=== PATIENT | female | born 1945 | race Caucasian/White ===

== ENCOUNTER → 2019-07-28 | Outpatient (CLI) | payer MEDICARE | END | disposition home or self-care (01) | LOC: LABWHC1 11:40 | PROVIDERS: ATTEND Orthopaedic Surgery | DX: M25.512 Pain in left shoulder (principal); S42.222A 2-part displaced fracture of surgical neck of left humerus, initial encounter for closed fracture; E55.9 Vitamin D deficiency, unspecified | CPT/HCPCS: 36415; 82306 ==

== ENCOUNTER 2020-07-15 06:25 | Inpatient (IN) | payer MEDICARE ==
[2020-07-15] MEDS ORDERED: ORPHENADRINE 30 MG/ML 2 ML VIAL IM STA (06:48)
[2020-07-15] MEDS ORDERED: MORPHINE SULFATE 4 MG/ML SYRINGE IM STA (06:48)
[2020-07-15] MEDS ORDERED: KETOROLAC 15 MG/ML 1 ML VIAL IM STA (06:48)
--- NOTE | 2020-07-15 06:53 | ED ---
Back Pain HPI - General Chief Complaint: Back Pain/Injury Stated Complaint: Back Pain Time Seen by Provider: 07/15/20 06:37 Source: patient, EMS, RN notes reviewed, old records reviewed Limitations: no limitations - History of Present Illness Initial Comments: Panel a 75-year-old female who presents emergency department today for evaluation for months of back pain on the right lower back with some radiation down the right leg. Patient states that her symptoms seem to start in the summer time. She's been taking Motrin for pain relief as Tylenol with Codeine did not work for her in the past. Patient states that she her pain become severe today when she awoke and her called 911 for transport to ER. She denies any saddle anesthesias. She denies any known fall or trauma. She did have an x-ray completed a month ago at [facility] and reports that the hair suspected some problems with her disks. Patient states that she has had no dysuria or hematuria or change in bowel habits. Denies abdominal pain. She does report that her pain is positional and exacerbated with straightening her leg. - Related Data Home Medications Medication Instructions Recorded Confirmed Cholecalciferol [Vitamin D3 (25 1,000 unit PO DAILY 07/15/20 07/15/20 Mcg = 1000 Iu)] Docusate [Colace] 100 mg PO DAILY 07/15/20 07/15/20 Ibuprofen [Motrin Ib] 800 mg PO Q6H PRN 07/15/20 07/15/20 Allergies Allergy/AdvReac Type Severity Reaction Status Date / Time ragweed pollen Allergy Cough Verified 07/15/20 08:10 acetaminophen [From Tylenol] AdvReac Unknown Verified 07/15/20 08:12 Sulfa (Sulfonamide AdvReac Unknown Verified 07/15/20 08:12 Antibiotics) Review of Systems ROS Statement: Those systems with pertinent positive or pertinent negative responses have been documented in the HPI. ROS Other: All systems not noted in ROS Statement are negative. Past Medical History Past Medical History: No Reported History History of Any Multi-Drug Resistant Organisms: None Reported Past Surgical History: Appendectomy, Cholecystectomy, Tonsillectomy Past Psychological History: No Psychological Hx Reported Smoking Status: Never smoker Past Alcohol Use History: Occasional Past Drug Use History: None Reported General Exam - General Exam Comments Initial Comments: 75-year-old female. Patient is resting in bed. Moderate discomfort. Limitations: no limitations General appearance: alert, in no apparent distress Head exam: Present: atraumatic, normocephalic, normal inspection Eye exam: Present: normal appearance, PERRL, EOMI. Absent: scleral icterus, conjunctival injection, periorbital swelling ENT exam: Present: normal exam, mucous membranes moist Neck exam: Present: normal inspection. Absent: tenderness, meningismus, lymphadenopathy Respiratory exam: Present: normal lung sounds bilaterally. Absent: respiratory distress, wheezes, rales, rhonchi, stridor Cardiovascular Exam: Present: regular rate GI/Abdominal exam: Present: soft, normal bowel sounds. Absent: distended, tenderness, guarding, rebound, rigid Extremities exam: Present: normal inspection, full ROM, normal capillary refill. Absent: tenderness, pedal edema, joint swelling, calf tenderness Back exam: Present: normal inspection, tenderness (Patient is tender on palpation to the right lower lumbar spine paraspinal muscles and right sciatic notch.) Neurological exam: Present: alert, oriented X3, CN II-XII intact Course Vital Signs 07/15/20 07/15/20 06:28 07:36 Temperature 98.2 F Pulse Rate 80 82 Respiratory 18 18 Rate Blood Pressure 174/92 156/77 O2 Sat by Pulse 96 97 Oximetry Medical Decision Making - Medical Decision Making 75-year-old female presents emergency department today for evaluation with complaints of right hip and back pain. She reports she's been having intermittent pain with physician for months. At this time patient's had a computed tomography scan which shows concern for multiple lytic lesions on lumbar spine into the right iliac crest concern for metastatic disease. She has no known history of cancer. I did inform Patient of these results and she states she's had having a difficult time following with her primary care doctor as of late. Discussed we can do further testing and treatment here and to give her IV pain medication to manage her back pain. I discussed the case Dr. ROD and discussed case with Dr. Richter. He requested consults to orthopedics for back pain with concern for metastatic disease as well as oncology. [facility] chest x-ray does show concern for infiltrate pneumonia. She'll be tested for Covid upright also started on IV Rocephin. Blood cultures obtained. - Lab Data Result diagrams: 07/15/20 09:19 07/15/20 09:19 Lab Results 07/15/20 07/15/20 07/15/20 Range/Units 07:50 09:19 09:19 WBC 6.4 (3.8-10.6) k/uL RBC 4.88 (3.80-5.40) m/uL Hgb 13.1 (11.4-16.0) gm/dL Hct 40.1 (34.0-46.0) % MCV 82.0 (80.0-100.0) fL MCH 26.7 (25.0-35.0) pg MCHC 32.6 (31.0-37.0) g/dL RDW 14.5 (11.5-15.5) % Plt Count 334 (150-450) k/uL MPV 7.4 Neutrophils % 75 % Lymphocytes % 16 % Monocytes % 6 % Eosinophils % 2 % Basophils % 1 % Neutrophils # 4.8 (1.3-7.7) k/uL Lymphocytes # 1.0 (1.0-4.8) k/uL Monocytes # 0.4 (0-1.0) k/uL Eosinophils # 0.1 (0-0.7) k/uL Basophils # 0.0 (0-0.2) k/uL Sodium 140 (137-145) mmol/L Potassium 3.6 (3.5-5.1) mmol/L Chloride 104 (98-107) mmol/L Carbon Dioxide 29 (22-30) mmol/L Anion Gap 7 mmol/L BUN 23 H (7-17) mg/dL Creatinine 0.95 (0.52-1.04) mg/dL Est GFR (CKD-EPI)AfAm 69 (>60 ml/min/1.73 sqM) Est GFR (CKD-EPI)NonAf 60 (>60 ml/min/1.73 sqM) Glucose 90 (74-99) mg/dL Calcium 10.1 (8.4-10.2) mg/dL Total Bilirubin 0.8 (0.2-1.3) mg/dL AST 45 H (14-36) U/L ALT 21 (4-34) U/L Alkaline Phosphatase 160 H (38-126) U/L Total Protein 6.8 (6.3-8.2) g/dL Albumin 3.4 L (3.5-5.0) g/dL Urine Color Yellow Urine Appearance Clear (Clear) Urine pH 5.5 (5.0-8.0) Ur Specific [place] 1.016 (1.001-1.035) Urine Protein Trace H (Negative) Urine Glucose (UA) Negative (Negative) Urine Ketones Negative (Negative) Urine Blood Negative (Negative) Urine Nitrite Negative (Negative) Urine Bilirubin Negative (Negative) Urine Urobilinogen <2.0 (<2.0) mg/dL Ur Leukocyte Esterase Negative (Negative) 07/15/20 10:18 EKG performed at 950 shows normal sinus rhythm. [place] deviation. Rib on a branch block. Multiple dispatcher for LVH may be normal variant. Ventricular rate of 80 bpm. Was 192 ms. She congregation is 140 ms. QT QTc is 446/514 ms. - Radiology Data Radiology results: report reviewed Impression of CT lumbar spine shows findings are felt to reflect metastatic disease. Multilevel degenerative disc disease with multilevel central stenosis. There is normal disc space height at L1-L2 no discrete herniation or central s tenosis. L2-L3 she's moderate distress during a posterior disc bulge. Sclerotic areas involving L2 and lytic lesions at L3. L3-L4 shows severe disc desiccation asking this note a posterior disc bulge with A Spur. Medically Degenerative Vertebral Bodies Spinous Processes of L3-L4. L4-L5 Shows Vacuum Disks Are Noted. Central Stenosis. Bilateral Lateral Recess Stenosis. L5-S1 Shows Moderate Distal Sensation. Posterior Disc Bulge. Bilateral Renal Stenosis. His Lytic Mass Noted in the Right Ileum Extending to the Bilateral Sacrum near the Right Greater Than Left. Basilar Atelectasis and Infiltrates Right Greater Than Left with Small Effusions. Pleural Based Nodule in the Left Lower Lobe. Patchy perihilar and upper lobe infiltrate suggestive of pneumonia. Correlate clinically is studies advice. Disposition Clinical Impression: Back pain, Lytic bone lesion of hip, Pleural effusion, Pneumonia Disposition: ADMITTED IP TO THIS HOSP Condition: Good Is patient prescribed a controlled substance at d/c from ED?: No Referrals: Gavi Calvillo MD [Primary Care Provider] - 1-2 days Time of Disposition: 09:40
--- NOTE | 2020-07-15 07:50 | CT ---
EXAMINATION TYPE: CT lumbar spine wo con DATE OF EXAM: 07/15/2020 COMPARISON: None HISTORY: low back pain CT DLP: 1338.[address] of the lumbar spine was performed. Bone and soft tissue window settings are submitted as well as coronal and sagittal reconstructions. L1-L2: Normal disc space height. No disc herniation protrusion or central stenosis. No facet joint arthropathy. No evidence for foraminal encroachment. L2-L3: Moderate disc space narrowing. Posterior disc bulge. Effacement ventral thecal sac without dis c herniation. There is mild central stenosis suggested. Lytic lesions at L3. Sclerotic areas involvin g L2. L3-L4: Severe disc desiccation vacuum disks noted. Posterior disc bulge with partial encapsulating sp ur. Moderate central stenosis identified. Lytic lesions are noted of the vertebral bodies and spinous processes of L3 and L4. L4-L5: Vacuum disc noted. Moderate posterior disc bulge. Severe central stenosis. Bilateral lateral r ecess stenosis. Mixed lytic and sclerotic lesions of L4 on L5. L5-S1: Moderate disc desiccation. Posterior disc bulge. Mild effacement ventral thecal sac. Bilateral lateral recess stenosis. Lytic mass is noted in the right ilium extending into the bilateral sacrum right greater than left. B asilar atelectasis and infiltrates right greater than left. Small effusions. Pleural-based nodule lef t lower lobe. IMPRESSION: 1. Findings felt to reflect metastatic disease. 2. Multilevel degenerative disc disease with multilevel central stenosis as outlined above.
[2020-07-15 08:00] LABS: Appearance,Urine Clear (Clear); Bilirubin,Urine Negative (Negative); Blood,Urine Negative (Negative); Color,Urine Yellow; Glucose,Urine (UA) Negative (Negative); Ketones,Urine Negative (Negative); Leukocyte Esterase,Urine Negative (Negative); Nitrite,Urine Negative (Negative); PH, Urine 5.5 (5.0-8.0); Protein,Urine Trace (Negative); Specific Gravity,Urine 1.016 (1.001-1.035); Urobilinogen,Urine <2.0 mg/dL (<2.0)
[2020-07-15] MEDS: SODIUM CHLORIDE 0.9% 1,000 ML IV SCH ×2 (09:38→19:20)
[2020-07-15 10:04] LABS: Albumin 3.4 g/dL (3.5-5.0); Calcium 10.1 mg/dL (8.4-10.2); Potassium 3.6 mmol/L (3.5-5.1); Total Bilirubin 0.8 mg/dL (0.2-1.3); Total Protein 6.8 g/dL (6.3-8.2)
[2020-07-15 10:07] LABS: Basophils % (A) 1 %; Eosinophils # (A) 0.1 k/uL (0-0.7); Eosinophils % (A) 2 %; HCT 40.1 % (34.0-46.0); HGB 13.1 gm/dL (11.4-16.0); Lymphocytes % (A) 16 %; MCH 26.7 pg (25.0-35.0); MCHC 32.6 g/dL (31.0-37.0); Mean Platelet Volume 7.4; Monocytes # (A) 0.4 k/uL (0-1.0); Monocytes % (A) 6 %; Neutrophils # (A) 4.8 k/uL (1.3-7.7); Neutrophils % (A) 75 %; Platelet Count 334 k/uL (150-450); RBC 4.88 m/uL (3.80-5.40); RDW 14.5 % (11.5-15.5); WBC 6.4 k/uL (3.8-10.6)
--- NOTE | 2020-07-15 10:12 | XR ---
EXAMINATION TYPE: XR chest 1V DATE OF EXAM: 07/15/2020 HISTORY: Shortness of breath. COMPARISON: None. TECHNIQUE: Single view of the chest is submitted. FINDINGS: Demonstrated are scattered senescent parenchymal change. Patchy perihilar and upper lobe infiltrate suggestive of pneumonia. Correlate clinically and progress studies are advised. Mottled appearance of the right humeral head and glenoid. Consider additional imaging of the right sh oulder. The heart is stable. Hilar and mediastinal structures are within normal limits. Degenerative changes are seen of the dorsal spine. IMPRESSION: 1. Patchy perihilar and upper lobe infiltrate suggestive of pneumonia. Correlate clinically and prog ress studies are advised.
[2020-07-15] MEDS ORDERED: cefTRIAXone IN SWFI 1,000 MG/10 ML SYRINGE IVP STA (10:22)
[2020-07-15] MEDS ORDERED: ONDANSETRON 4 MG/2 ML VIAL IVP PRN (10:24)
[2020-07-15] MEDS ORDERED: ACETAMINOPHEN TAB 325 MG TAB PO PRN (10:24)
[2020-07-15] MEDS ORDERED: KETOROLAC 15 MG/ML 1 ML VIAL IVP PRN (10:24)
[2020-07-15] MEDS ORDERED: NALOXONE 0.4 MG/ML 1 ML VIAL IV PRN (10:24)
[2020-07-15] MEDS ORDERED: IBUPROFEN 400 MG TAB PO PRN (10:24)
[2020-07-15] MEDS ORDERED: TEMAZEPAM 15 MG CAP PO PRN (10:24)
[2020-07-15 10:31] LABS: Partial Thromboplastin Time 22.6 sec (22.0-30.0)
[2020-07-15] MEDS ORDERED: IOPAMIDOL CONTRAST (ORAL USE) VIAL PO PRN (11:35)
[2020-07-15] MEDS: MORPHINE SULFATE 4 MG/ML SYRINGE IV PRN (12:52)
--- NOTE | 2020-07-15 15:15 | NM ---
EXAMINATION TYPE: NM bone scan whole body DATE OF EXAM: 07/15/2020 COMPARISON: Correlation CT lumbar spine 07/15/2020 HISTORY: 75-year-old female breast mass and bone lesions TECHNIQUE: Delayed whole-body scanning was performed following the injection of 23.2 mCi Tc 99m MDP. Whole-body images acquired 3 hours post injection. FINDINGS: Numerous abnormal foci of increased activity are present throughout the axial and appendicular skelet on. Foci involve the calvarium, spine, sacrum, subtrochanteric region of the proximal left femur, mid left femur, small focus within the right femoral neck and distal right femur, bilateral ribs, and bi lateral shoulders. Small focus within the proximal left humeral shaft. IMPRESSION: Diffuse osseous metastatic disease with involvement of both the axial and appendicular skeleton. Atte ntion to the proximal left femur on patient's CT which we note to be scheduled at this time. A signif icant lytic lesion which can predispose the patient to a pathologic fracture should be excluded.
--- NOTE | 2020-07-15 16:50 | P.CONS ---
History of Present Illness - Reason for Consult Consult date: 07/15/20 bone lesions Requesting physician: Blanca North - Chief Complaint back pain - History of Present Illness Mrs. Mckeon is a very pleasant 75-year-old female we've been asked to see in regards to concerning findings on CT of the low back and pelvis when she presented for persistent low back pain. There is lytic mass in the right ilium extending into the bilateral sacrum, right greater than left, suspicious for metastatic disease, there is a pleural-based nodule in the left lower lobe. Patient states that she has had back pain since the summer. It is persistent and now progressive. Associated with some weakness in the legs, R>L, one instance of incontinence of urine in recent months. Patient denies any personal history of cancer. She is a never smoker, she states that she does have a right breast mass that is been there for about 2 years. He thinks she has lost about 25lbs, pt denied sweats, fevers, pain in the breast, cough, MALISSA, chest pain, swelling, bleeding. Her has had to help her walk the last week, states she leans to the left, pt denied MORALES, vision changes, numbness or tingling in the extremities. 14 point ROS is otherwise negative. She had a sister with breast cancer in her 50s (surg, chemo), brother with colon cancer in his 20's. Pt is never smoker. Review of Systems 14 point ROS is negative except as stated in HPI Past Medical History Past Medical History: No Reported History History of Any Multi-Drug Resistant Organisms: None Reported Past Surgical History: Appendectomy, Cholecystectomy, Tonsillectomy Past Psychological History: No Psychological Hx Reported Smoking Status: Never smoker Past Alcohol Use History: Occasional Past Drug Use History: None Reported Medications and Allergies Home Medications Medication Instructions Recorded Confirmed Type Cholecalciferol [Vitamin D3 (25 1,000 unit PO DAILY 07/15/20 07/15/20 History Mcg = 1000 Iu)] Docusate [Colace] 100 mg PO DAILY 07/15/20 07/15/20 History Ibuprofen [Motrin Ib] 800 mg PO Q6H PRN 07/15/20 07/15/20 History Allergies Allergy/AdvReac Type Severity Reaction Status Date / Time ragweed pollen Allergy Cough Verified 07/15/20 08:10 acetaminophen [From Tylenol] AdvReac Unknown Verified 07/15/20 08:12 Sulfa (Sulfonamide AdvReac Unknown Verified 07/15/20 08:12 Antibiotics) Physical Exam Vitals: Vital Signs Temp Pulse Resp BP Pulse Ox 07/15/20 11:00 75 18 141/78 98 07/15/20 10:00 76 18 148/75 100 07/15/20 07:36 82 18 156/77 97 07/15/20 06:28 98.2 F 80 18 174/92 96 Intake and Output 07/14/20 07/15/20 07/15/20 22:59 06:59 14:59 Other: Weight 88.451 kg - Constitutional General appearance: cooperative, disheveled, no acute distress, obese - EENT very dry mucus membranes Eyes: anicteric sclerae, EOMI ENT: hearing grossly normal - Neck Neck: lymphadenopathy (rt axilla, 5cm mass) - Respiratory Respiratory: bilateral: CTA, diminished - Cardiovascular Rhythm: regular Heart sounds: normal: S1, S2 Abnormal Heart Sounds: no systolic murmur, no diastolic murmur, no rub, no S3 Gallop, no S4 Gallop, no click, no other leg Peripheral Edema: bilateral: None - Gastrointestinal General gastrointestinal: no absent bowel sounds, no decreased bowel sounds, no distended, no hepatomegaly, no hyperactive bowel sounds, normal bowel sounds, no organomegaly, no rigid, no scaphoid, soft, no splenomegaly, no tenderness, no umbilical hernia, no ventral hernia - Integumentary Integumentary: normal - Neurologic slightly lethargic Neurologic: CNII-XII intact - Musculoskeletal Musculoskeletal: generalized weakness Bilateral breast exam: left breast tissue feels dense, possibly fibrotic. Right breast has irregular mass, approx 10cm, 9-12oclock position, skin nodularity noted, not fixed to chest wall, nipple changes Results CBC & Chem 7: 07/15/20 09:19 07/15/20 09:19 Labs: Abnormal Lab Results - Last 24 Hours (Table) 07/15/20 07/15/20 Range/Units 07:50 09:19 BUN 23 H (7-17) mg/dL AST 45 H (14-36) U/L Alkaline Phosphatase 160 H (38-126) U/L Albumin 3.4 L (3.5-5.0) g/dL Urine Protein Trace H (Negative) Assessment and Plan (1) Breast mass, right Current Visit: Yes Status: Acute Priority: High Code(s): N63.10 - UNSPECIFIED LUMP IN THE RIGHT BREAST, UNSPECIFIED QUADRANT SNOMED Code(s): 89951311 (2) Lytic bone lesion of hip Current Visit: Yes Status: Acute Priority: High Code(s): M89.8X5 - OTHER SPECIFIED DISORDERS OF BONE, THIGH SNOMED Code(s): 71746709 Plan: Right axillary adenopathy and right breast mass. Patient states this has been present probably for 2 years or more. She has not had workup of the same. Back pain has been since the summer. Workup so far is showing suspicious lytic lesions in pelvic bones. Situation is very concerning for malignancy. Have requested CT CAP, NM bone scan and biopsy of the right breast mass. Have requested additional tissue for next generation sequencing. Have also requested MRI of the brain as the patient's states that she has been "leaning to the left". Tumor markers ordered. F/U in AM. Eval pain control and titrate for pt comfort.
--- NOTE | 2020-07-15 17:05 | CT ---
EXAMINATION TYPE: CT ChestAbdPelvis w con DATE OF EXAM: 07/15/2020 COMPARISON: Correlation bone scan 07/15/2020 HISTORY: 75-year-old female breast mass and bone lesions TECHNIQUE: Contiguous axial scanning of the chest, abdomen, and pelvis performed with IV Contrast, pa tient injected with 100 mL of Isovue 300. Delayed images through the kidneys were obtained. Coronal/s agittal reconstructions performed. CT DLP: 2063.4 mGycm Automated exposure control for dose reduction was used. FINDINGS: CHEST: Heart normal size without pericardial effusion. Mild LAD and RCA coronary artery calcifications. Aorta normal caliber with conventional arch vessel branching anatomy. Large upper outer quadrant right breast mass measuring 5.6 x 4.4 cm. Adjacent 2.7 cm x 1.7 cm satelli te mass at approximately 9:00 position within the right breast. Right axillary lymphadenopathy measuring 4.7 x 3.4 cm. Right subpectoral adenopathy higher up measuring 2.2 x 1.2 cm. Right internal mammary chain lymph node measuring 1.1 cm. Mediastinal lymphadenopathy paratracheal and AP window measuring up to 2.8 cm. Bilateral hilar lymphadenopathy measuring up to 2.9 cm on the right and 2.7 x 1.6 cm on the left. Subcarinal 2.9 cm lymphadenopathy. Small right and trace left pleural effusions. Bilateral pulmonary nodules measuring up to 2.0 cm on the right and 9 mm on the left. Subpleural nodu larity anterior right lower lung also suspicious for metastatic disease. ABDOMEN: No obvious hepatic metastases identified at this time allowing for artifact from the patient's arms d own by her side. Cholecystectomy clips. Rounded fat density 8 mm lesion left adrenal gland possible small myelolipoma. Kidneys, spleen, and pancreas show no gross abnormal quality. No dilated small bowel, free fluid, or free air. No mesenteric or retroperitoneal lymphadenopathy. Mild stool burden. Scattered colonic diverticulosis. Prominent stool distending the rectum up to 7.0 cm AP. PELVIS: Stallworth catheter is in place collapsing the bladder. Uterus anteverted. Endometrial stripe estimated at 5 mm. Small bilateral ovaries. No abnormal fluid collection in the pelvis or pelvic lymphadenopathy. BONES: There is a prominent intramedullary lesion within the subtrochanteric region of the proximal left fem ur. No significant cortical thinning in this region. There is cortical loss involving the left lesser trochanter predisposing it to a pathologic fracture Diffuse mixed sclerotic and lytic lesions throughout including the pelvis and sacrum, spine, bilatera l ribs, sternum, scapula, proximal humeri. There is a lytic lesion at the base of the right coracoid process placing at risk for pathologic frac ture. Mild overall height loss of the T10 vertebral body. Loss of much of the posterior vertebral body bita ex at T3, T4, T5 vertebral bodies. IMPRESSION: 1. 5.6 CM RIGHT UPPER OUTER QUADRANT BREAST MASS EXTENDING TO THE SKIN SURFACE. ADJACENT 2.7 CM SATEL LITE MASS AT THE 9:00 POSITION. 2. RIGHT AXILLARY LYMPHADENOPATHY MEASURING 4.7 CM. SUBPECTORAL ADENOPATHY ON THE RIGHT MEASURING 2.2 CM. 3. ADDITIONAL METASTATIC DISEASE CHARACTERIZED BY: MEDIASTINAL, HILAR, RIGHT INTERNAL MAMMARY CHAIN L YMPHADENOPATHY, BILATERAL PULMONARY NODULES, AND DIFFUSE OSSEOUS METASTATIC DISEASE. 4. THERE IS SOFT TISSUE DESTRUCTION INVOLVING MOST OF THE POSTERIOR VERTEBRAL BODY CORTEX OF T3, T4, T5. MILD OVERALL HEIGHT LOSS OF T10. LARGE INTRAMEDULLARY LESION WITHIN THE SUBTROCHANTERIC REGION OF THE PROXIMAL LEFT FEMORAL SHAFT BUT WITHOUT SIGNIFICANT CORTICAL LOSS HERE AT THIS TIME. HOWEVER, LY TIC LESIONS INVOLVING THE LEFT LESSER TROCHANTER AND BASE OF THE RIGHT CORACOID PROCESS PLACE THESE A REAS AT RISK FOR PATHOLOGIC FRACTURE. 5. SMALL EFFUSIONS, RIGHT GREATER THAN LEFT.
[2020-07-16] MEDS: MORPHINE SULFATE 4 MG/ML SYRINGE IV PRN ×3 (02:16→22:16)
[2020-07-16] MEDS: SODIUM CHLORIDE 0.9% 1,000 ML IV SCH ×2 (05:20→17:27)
[2020-07-16] MEDS ORDERED: PANTOPRAZOLE 40 MG/10 ML VIAL IV SCH (09:00)
--- NOTE | 2020-07-16 09:30 | USB ---
Reason for exam: clinical finding. US Breast Limited RT Right limited breast ultrasound including focal area of concern, retroareolar and axilla demonstrates a 5.3 x 3.4 x 6.1cm irregular, solid, hypoechoic, vascular lesion at 10 o'clock BB, a 3.1cm lobular, abnormal lymph node at the axilla and a 0.9cm oval, abnormal lymph node at the axilla. ASSESSMENT: Highly suggestive of malignancy, BI-RAD 5 RECOMMENDATION: Ultrasound core biopsy of the right breast.
[2020-07-16] MEDS ORDERED: diazePAM 5 MG TAB PO STA (10:21)
--- NOTE | 2020-07-16 12:26 | USB ---
ULTRASOUND GUIDED CORE BIOPSY RIGHT BREAST MASS: CLINICAL HISTORY: Right breast mass FINDINGS: The procedure was explained to the patient. The risks, complications, benefits and alternatives were discussed and any questions were answered. Informed consent was obtained. Patient was placed supine on the ultrasound table and prepped and draped in the usual sterile fashion. Utilizing a 14 gauge needle, two passes were made into the requested right breast mass. Surgical clip placed post procedure. Patient was stable throughout the procedure. Pathology is pending. All elements of maximal barrier technique were utilized. IMPRESSION: 1. Successful ultrasound guided biopsy right breast mass. Pathology Results: Malignant RIGHT BREAST, CORE BIOPSY: Invasive moderately differentiated ductal carcinoma (Grade 2). See Surgical Pathology Cancer Case Summary and Comment. Recommendation Surgical consult of the right breast. RONY
--- NOTE | 2020-07-16 12:45 | P.CONS ---
History of Present Illness - Reason for Consult Consult date: 07/16/20 metastatic bone disease Requesting physician: Valdemar Johnson - Chief Complaint Lower back pain - History of Present Illness 75 years old female with history of lower back pain in the past 6 months, in the last week her back pain became severe and untolerable, she came to the emergency room, CT of the lumbar spine showed lytic lesions in the right ilium , bilateral sacrum and the lumbar spine. The patient has no history of cancer. Her bone scan revealed diffuse osseous disease in both axial and appendicular skeleton , with attention to the proximal left femur , there is a significant lytic lesion in the left femur which might be impending fracture . The patient has a palpable mass in the right breast which has been there for years, she never had biopsy. Ultrasound of the right breast revealed a 5.3 x 3.4 x 6.1 cm irregular solid hypoechoic at 10 o'clock position with abnormal lymph nodes in the right axilla. Biopsy is scheduled to be done today. At this time Mrs. Mckeon complaints of pain in the lower back, the pain is constant even at rest, it is 9/10 in pain scale , and drops to 4 /10 by using pain medication. she complains of pain in the right shoulder as well. Review of Systems Constitutional: Reports as per HPI Breasts: right: masses (Has been noticed for 2 years ) Breasts: Reports as per HPI Cardiovascular: Reports as per HPI Respiratory: Reports as per HPI Gastrointestinal: Reports as per HPI Genitourinary: Reports as per HPI Musculoskeletal: Reports limitation of motion, Reports low back pain, Reports mo rning stiffness, Reports muscle weakness Integumentary: Reports as per HPI Neurological: Reports as per HPI Endocrine: Reports as per HPI Hematologic/Lymphatic: Reports as per HPI Allergic/Immunologic: Reports as per HPI Past Medical History Past Medical History: No Reported History, Osteoarthritis (OA) Additional Past Medical History / Comment(s): Low R sided back pain into R hip past few months, occasional constipation. History of Any Multi-Drug Resistant Organisms: None Reported Past Surgical History: Appendectomy, Cholecystectomy, Tonsillectomy Past Anesthesia/Blood Transfusion Reactions: No Reported Reaction Past Psychological History: No Psychological Hx Reported Smoking Status: Never smoker Past Alcohol Use History: Occasional Past Drug Use History: None Reported - Past Family History Father Family Medical History: Hypertension Mother Family Medical History: Diabetes Mellitus Medications and Allergies Home Medications Medication Instructions Recorded Confirmed Type Cholecalciferol [Vitamin D3 (25 1,000 unit PO DAILY 07/15/20 07/15/20 History Mcg = 1000 Iu)] Docusate [Colace] 100 mg PO DAILY 07/15/20 07/15/20 History Ibuprofen [Motrin Ib] 800 mg PO Q6H PRN 07/15/20 07/15/20 History Allergies Allergy/AdvReac Type Severity Reaction Status Date / Time ragweed pollen Allergy Cough Verified 07/15/20 08:10 acetaminophen [From Tylenol] AdvReac Unknown Verified 07/15/20 08:12 Sulfa (Sulfonamide AdvReac Unknown Verified 07/15/20 08:12 Antibiotics) Physical Exam Vitals: Vital Signs Temp Pulse Pulse Resp BP BP BP 07/16/20 11:30 85 16 149/81 07/16/20 11:15 86 16 147/76 07/16/20 11:05 87 18 141/79 07/16/20 04:50 98.3 F 88 18 146/79 07/15/20 23:25 18 07/15/20 22:25 98.5 F 90 16 136/78 07/15/20 20:05 18 07/15/20 15:56 97.6 F 78 18 148/84 07/15/20 15:30 98.9 F 80 20 146/73 07/15/20 12:54 85 20 155/73 07/15/20 12:30 82 155/73 Pulse Ox 07/16/20 11:30 98 07/16/20 11:15 97 07/16/20 11:05 98 07/16/20 04:50 96 07/15/20 23:25 96 07/15/20 22:25 91 L 07/15/20 20:05 07/15/20 15:56 97 07/15/20 15:30 98 07/15/20 12:54 98 07/15/20 12:30 Intake and Output 07/15/20 07/16/20 07/16/20 22:59 06:59 14:59 Intake Total 400 1400 Output Total 400 400 Balance 0 1000 Intake: Intake, IV Titration 400 1200 Amount Sodium Chloride 0.9% 1, 400 1200 000 ml @ 100 mls/hr IV . Q10H [facility] Rx#:[id number] Oral 200 Output: Urine 400 400 Uretheral (Stallworth) 400 Other: Voiding Method Indwelling Catheter Indwelling Catheter Weight 88.451 kg - Constitutional General appearance: mild distress, no acute distress, obese - EENT Eyes: EOMI - Neck Neck: no lymphadenopathy - Respiratory Respiratory: bilateral: rales - Cardiovascular Rhythm: regular - Gastrointestinal General gastrointestinal: no organomegaly, soft, no tenderness - Integumentary Integumentary: normal - Neurologic Neurologic: CNII-XII intact - Musculoskeletal Musculoskeletal: generalized weakness - Psychiatric Psychiatric: A&O x's 3, appropriate affect, intact judgment & insight Results CBC & Chem 7: 07/15/20 09:19 07/15/20 09:19 Labs: Abnormal Lab Results - Last 24 Hours (Table) 07/16/20 Range/Units 06:37 CA 27-29 70.2 H (0.0-38.5) U/mL Assessment and Plan Assessment: -Probably stage IV breast cancer with metastatic disease to the bone. -Pain in the lower back related to diffuse osseous metastasis disease of the lumbar spine, pelvic bone, and left femur. -Possible impending fracture in the left femur due to a lytic lesion . (1) Back pain Current Visit: Yes Status: Acute Code(s): M54.9 - DORSALGIA, UNSPECIFIED SNOMED Code(s): 455477207 (2) Breast mass, right Current Visit: Yes Status: Acute Priority: High Code(s): N63.10 - UNSPECIFIED LUMP IN THE RIGHT BREAST, UNSPECIFIED QUADRANT SNOMED Code(s): 93226879 Plan: Bone scan and CAT scan were reviewed, the patient is scheduled today to have a biopsy of the mass in the right the breast for tissue diagnosis, if that the patient had cancer, he will get the benefit of palliative external beam radiation therapy to the sacrum and iliac bone for pain relief. I talked to the patient about the rational , the technique and the potential acute and late side effects of the radiation. we will finalize our recommendation upon the results of the breast biopsy . In the mean time , the Patient pain can be managed medically by using pain medications . Time with Patient: Greater than 30
--- NOTE | 2020-07-16 13:04 | MR ---
EXAMINATION TYPE: MR brain wo/w con DATE OF EXAM: 07/16/2020 COMPARISON: Bone scan 07/15/2020 HISTORY: Lt sided weakness, breast mass, bone lesions TECHNIQUE: Multiplanar, multisequence images of the brain and brainstem is performed without and with IV contras t, utilizing 9 mL intravenous Gadavist . FINDINGS: There is some artifact on the exam. There is a right frontal brain mass measuring approximately 5 cm in AP dimension by 4.5 cm in cephala d to caudal dimension by 2.5 cm in transverse dimension which shows some enhancement which is mildly heterogeneous. There is associated vasogenic edema, mass effect causes some midline shift from right to left with perhaps some early subfalcine herniation, there is mass effect on the right lateral vent ricle. Ring-enhancing focus within the calvarium towards convexity on the right measures approximatel y 11 mm in transverse dimension, there is a focus extending from the inner table of the left frontal calvarium measuring approximately 2.5 cm in AP dimension by 1.6 cm in cephalad to caudal dimension by 1.2 cm in transverse dimension causing some minimal mass effect on the underlying brain. Smaller foc us is present on sagittal image 46, coronal image 44 of the post contrast images consistent with a sm all calvarial mass, lytic lesion. Extensive sinus disease noted in the right maxillary sinus, some inflammatory change noted in the eth moid air cells.. Orbits show symmetric appearance. There is no evident hemorrhage. Periventricular wh ite matter shows patchy increased signal on inversion recovery T2-weighted sequences. There is some a bnormal increased signal present within the eulogio greater on the left along the region of the tectum b ilaterally. IMPRESSION: Metastatic disease as described A [place] level critical message alert has been initiated for Valdemar Johnson MD~[id number] via the [employer] Critical Results System on 07/16/2020 1:02 PM. This message alert has been sent to Felicity Buchanan~[id number] via the preferences provided by the clinician for the receipt of Radiology Critical Findings . Message ID [id number].
--- NOTE | 2020-07-16 14:48 | XR ---
EXAMINATION TYPE: XR Hip Complete LT, XR femur LT DATE OF EXAM: 07/16/2020 CLINICAL HISTORY: pain TECHNIQUE: AP and frogleg views of the left hip are obtained. He also submitted. AP and lateral view s of the left femur are also submitted. COMPARISON: None. FINDINGS: Lytic lesion is noted within the middle one third of the left femoral diaphysis. There is a lso a vague lesion noted within the intertrochanteric region which appears to be partially lytic and sclerotic. No evidence for fracture or dislocation. IMPRESSION: 1. Metastatic disease to the left femur is noted. ICD 10 NO FRACTURE, INITIAL EVALUATION
[2020-07-16] MEDS ORDERED: MANNITOL 25% 12.5 GM/50 ML VIAL IV STA (15:02)
[2020-07-16] MEDS ORDERED: SALINE 1 500ML.BAG with MANNITOL 20% PMX 125 ML IV ONE (15:30)
--- NOTE | 2020-07-16 17:05 | P.CNOR ---
History of Present Illness - [facility] Consult date: 07/16/20 Requesting physician: Blanca North Consult reason: other (Most likely metastatic disease to spine and sacrum) History of present illness: Patient is a very pleasant 75-year-old female who is seen sitting at the bedside for further evaluation for her lumbar spine and left femur. Patient presented to the emergency department after experiencing ongoing low back pain over the p ast several months. She states the bedside today the pain stays at her lumbar spine and some towards her right sacrum. She denies any lower extremity weakness or radiculopathy bilaterally. She has been ambulating with the assistance of a walker for months. She denies recent injuries. She has un dergone extensive workup during her admission to the hospital. She is known to have a right-sided breast mass over the past 2 years which was not been evaluated. CT imaging of the lumbar spine and pelvis were concerning for metastatic disease. We will consulted for further evaluation. Patient did undergo MRI imaging of the brain today. Stallworth catheter is intact. The patient states she has not gotten out of bed during her admission. She states she was not having any difficulty with urination. She states rolling over in bed exacerbates her back pain and was difficult so the Stallworth catheter was placed. Patient underwent a breast core needle biopsy today. Past Medical History Past Medical History: No Reported History, Osteoarthritis (OA) Additional Past Medical History / Comment(s): Low R sided back pain into R hip past few months, occasional constipation. History of Any Multi-Drug Resistant Organisms: None Reported Past Surgical History: Appendectomy, Cholecystectomy, Tonsillectomy Past Anesthesia/Blood Transfusion Reactions: No Reported Reaction Past Psychological History: No Psychological Hx Reported Smoking Status: Never smoker Past Alcohol Use History: Occasional Past Drug Use History: None Reported - Past Family History Father Family Medical History: Hypertension Mother Family Medical History: Diabetes Mellitus Medications and Allergies Home Medications Medication Instructions Recorded Confirmed Type Cholecalciferol [Vitamin D3 (25 1,000 unit PO DAILY 07/15/20 07/15/20 History Mcg = 1000 Iu)] Docusate [Colace] 100 mg PO DAILY 07/15/20 07/15/20 History Ibuprofen [Motrin Ib] 800 mg PO Q6H PRN 07/15/20 07/15/20 History Allergies Allergy/AdvReac Type Severity Reaction Status Date / Time ragweed pollen Allergy Cough Verified 07/15/20 08:10 acetaminophen [From Tylenol] AdvReac Unknown Verified 07/15/20 08:12 Sulfa (Sulfonamide AdvReac Unknown Verified 07/15/20 08:12 Antibiotics) Physical Examination Physical exam: Patient is awake, alert, and oriented 3 Vital signs stable Adequate chest excursion with deep inspiration and expiration Examination of lumbar spine reveals skin is intact with no abrasions, aspirations, or bruises; no erythema, purulence or signs of infection Patient is able to lift legs off the bed independently bilaterally Dorsiflexion, plantarflexion, and extensor hallucis longus positive sustained bilaterally Lower extremity strength 5/5 bilaterally No lower extremity hyperreflexia bilaterally Straight leg test negative bilateral lower extremities Negative Lasegue's test bilaterally No signs or symptoms of DVT; no calf pain No pain with internal and external rotation of the hips bilaterally Neurovascularly intact Results Pertinent studies: CT of the lumbar spine taken on 07/15/2020: L2-3 mild central stenosis; L3 lytic lesions; sclerotic areas involving L2; L3-4 severe disc desiccation and posterior disc bulge with moderate central canal stenosis with lytic lesions noted of the vertebral bodies spinous processes of L3 and L4; L4-5 moderate posterior disc bulging with severe central canal stenosis and bilateral lateral recess stenosis with mixed lytic and sclerotic lesions of L4 and L5; L5-S1 moderate distress occasionally posterior disc bulge resulting in bilateral lateral recess stenosis number: Lytic masses noted in the right ilium extended into the bilateral sacrum right greater than left; findings likely represent metastatic disease Nuclear medicine whole-body bone scan taken on 07/15/2020: Diffuse osseous metastatic disease with involvement of both axial and appendicular skeleton with attention to the proximal left femur which was seen on CT with significant lytic lesion which could predispose the patient to pathologic fracture CT of the chest, abdomen, and pelvis taken on 07/15/2020: Lytic lesions involving the left lesser trochanter; lytic lesion of the right coracoid process; soft tissue destruction involving mostly the posterior vertebral body cortex of T3, T4, and T5; mild height loss T10; large intramedullary lesion within the subtrochanteric region of the proximal left femoral shaft but without significant cortical loss; 5.6 cm right upper outer quadrant mass extending to the skin surface; right axillary lymphadenopathy; additional metastatic disease - Labs Labs: Abnormal Lab Results - Last 24 Hours (Table) 07/16/20 Range/Units 06:37 CA 27-29 70.2 H (0.0-38.5) U/mL Microbiology - Last 24 Hours (Table) 07/15/20 10:41 Blood Culture - Preliminary Blood No Growth after 24 hours H & H 07/15/20 Range/Units 09:19 Hgb 13.1 (11.4-16.0) gm/dL Hct 40.1 (34.0-46.0) % Coagulation 07/15/20 Range/Units 09:19 INR 1.0 (<1.2) Result Diagrams: 07/15/20 09:19 07/15/20 09:19 Assessment and Plan Assessment: Assessment: Low back pain and right-sided sacral pain Large intramedullary lesion within the subtrochanteric region of the proximal left femoral shaft Multiple lytic lesions of the lumbar spine Lytic mass of the right ilium extending into the bilateral sacrum greater on the right than left Right breast mass (1) Low back pain Current Visit: Yes Status: Acute Code(s): M54.5 - LOW BACK PAIN SNOMED Code(s): 493353902 (2) Sacral pain Current Visit: Yes Status: Acute Code(s): M53.3 - SACROCOCCYGEAL DISORDERS, NOT ELSEWHERE CLASSIFIED SNOMED Code(s): 57453521 (3) Lytic bone lesion of left femur Current Visit: Yes Status: Acute Code(s): M89.9 - DISORDER OF BONE, UNSPECIFIED SNOMED Code(s): 08715461 (4) Breast mass, right Current Visit: Yes Status: Acute Priority: High Code(s): N63.10 - UNSPECIFIED LUMP IN THE RIGHT BREAST, UNSPECIFIED QUADRANT SNOMED Code(s): 73825193 Plan: Plan: 1. After physical examination the patient, further discussion with the patient, and reviewing of imaging, we will currently plan to obtain further imaging. Patient does experience ongoing low back pain with pain radiating most significa nt towards the right sacrum. She has had CT imaging of the lumbar spine with findings consistent and concerning for metastatic disease. We plan to obtain MRI imaging of the lumbar spine and sacrum. Patient also has evidence of a large intramedullary lesion within the subtrochanteric region of the proximal left femoral shaft. This is not completely visualized well on CT imaging. We plan to obtain dedicated x-rays to the left hip. and femur for further evaluation. We did discuss were not currently planned for acute surgical intervention in regards to her lumbar spine. We did discuss the lytic lesion at her left femur and she could be predisposed to a pathologic fracture. We discussed we will review her imaging and follow-up with a plan of care. We discussed she may need prophylactic intramedullary rodding for her left femur depending on those x-ray results. We plan to have her follow with Dr. Olmstead and radiation oncology for pain control with treatment. Consultation has been placed for Dr. Olmstead. 2. Patient will continue being seen and examined by multiple other medical providers including medicine and oncology. Time with Patient: Greater than 30 (Including obtaining history, physical examination, reviewing of imaging, and dictation.)
[2020-07-16] MEDS: DEXAMETHASONE SOD PHOSPHATE 10 MG/ML 1 ML VIAL IV SCH (17:27)
--- NOTE | 2020-07-16 17:57 | P.HPIM ---
History of Present Illness H&P Date: 07/16/20 Chief Complaint: weakness Maritza Mckeon is a 75 yo F who presented to the hospital with progressive and worsening low back pain, weight loss and unsteady gait. Per , pt has dropped about 25 lbs and is now having constant pain in her legs and pelvis. No fevers, chills or night sweats. She is a nonsmoker. Pt does note a R breast mass that has been present for a few years. On presentation she was hypertensive, labs uremarkable. CT with multiple lytic lesions throughout spine concerning for metastatic disease. Pt was evaluated by Oncology and PET scan ordered which also showed diffuse disease throughout axial spine and MRI brain was ordered as well. 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 She continues to complain of back pain and has not been out of bed this admission. Review of Systems All systems: negative Constitutional: Reports chronic headaches, Reports weakness, Denies chills, Denies fever Eyes: denies blurred vision, denies pain Ears, nose, mouth and throat: Denies headache, Denies sore throat Cardiovascular: Denies chest pain, Denies shortness of breath Respiratory: Denies cough Gastrointestinal: Denies abdominal pain, Denies diarrhea, Denies nausea, Denies vomiting Genitourinary: Denies dysuria, Denies hematuria Musculoskeletal: Reports as per HPI, Reports fractures, Reports frequent falls, Reports gait dysfunction, Reports myalgias Musculoskeletal: right: wrist swelling Integumentary: Denies pruritus, Denies rash Neurological: Denies numbness, Denies weakness Psychiatric: Denies anxiety, Denies depression Endocrine: Denies fatigue, Denies weight change Past Medical History Past Medical History: No Reported History, Osteoarthritis (OA) Additional Past Medical History / Comment(s): Low R sided back pain into R hip past few months, occasional constipation. History of Any Multi-Drug Resistant Organisms: None Reported Past Surgical History: Appendectomy, Cholecystectomy, Tonsillectomy Past Anesthesia/Blood Transfusion Reactions: No Reported Reaction Past Psychological History: No Psychological Hx Reported Smoking Status: Never smoker Past Alcohol Use History: Occasional Past Drug Use History: None Reported - Past Family History Father Family Medical History: Hypertension Mother Family Medical History: Diabetes Mellitus Medications and Allergies Home Medications Medication Instructions Recorded Confirmed Type Cholecalciferol [Vitamin D3 (25 1,000 unit PO DAILY 07/15/20 07/15/20 History Mcg = 1000 Iu)] Docusate [Colace] 100 mg PO DAILY 07/15/20 07/15/20 History Ibuprofen [Motrin Ib] 800 mg PO Q6H PRN 07/15/20 07/15/20 History Allergies Allergy/AdvReac Type Severity Reaction Status Date / Time ragweed pollen Allergy Cough Verified 07/15/20 08:10 acetaminophen [From Tylenol] AdvReac Unknown Verified 07/15/20 08:12 Sulfa (Sulfonamide AdvReac Unknown Verified 07/15/20 08:12 Antibiotics) Physical Exam Vitals: Vital Signs Temp Pulse Pulse Resp BP BP BP 07/16/20 12:29 98.3 F 91 20 138/80 07/16/20 11:30 85 16 149/81 07/16/20 11:15 86 16 147/76 07/16/20 11:05 87 18 141/79 07/16/20 04:50 98.3 F 88 18 146/79 07/15/20 23:25 18 07/15/20 22:25 98.5 F 90 16 136/78 07/15/20 20:05 18 07/15/20 15:56 97.6 F 78 18 148/84 07/15/20 15:30 98.9 F 80 20 146/73 Pulse Ox 07/16/20 12:29 95 07/16/20 11:30 98 07/16/20 11:15 97 07/16/20 11:05 98 07/16/20 04:50 96 07/15/20 23:25 96 07/15/20 22:25 91 L 07/15/20 20:05 07/15/20 15:56 97 07/15/20 15:30 98 Intake and Output 07/16/20 07/16/20 07/16/20 06:59 14:59 22:59 Intake Total 1400 Output Total 400 Balance 1000 Intake: Intake, IV Titration 1200 Amount Sodium Chloride 0.9% 1, 1200 000 ml @ 100 mls/hr IV . Q10H [facility] Rx#:[id number] Oral 200 Output: Urine 400 Uretheral (Stallworth) 400 Other: Voiding Method Indwelling Catheter General: well nourished, well developed, NAD. Vitals reviewed Eyes: PERRL, EOMI, conjunctiva normal HENT: normocephalic, mucus membranes moist Neck: supple, no JVD Lungs: normal respiratory effort, no wheezes or rales CV: Regular rate and rhythm, no murmur. Peripheral pulses 2+ Abdomen: soft, nondistended, no organomegaly Lymph: no cervical or axillary LAD Skin: warm and dry. Neuro: A&Ox3, normal mood and affect Results CBC & Chem 7: 07/15/20 09:19 07/15/20 09:19 Labs: Abnormal Lab Results - Last 24 Hours (Table) 07/16/20 Range/Units 06:37 CA 27-29 70.2 H (0.0-38.5) U/mL Microbiology - Last 24 Hours (Table) 07/15/20 10:41 Blood Culture - Preliminary Blood No Growth after 24 hours Thrombosis Risk Factor Assmnt - Choose All That Apply Any of the Below Risk Factors Present?: Yes Each Factor Represents 1 point: Obesity (BMI >25) Other Risk Factors: Yes Each Risk Factor Represents 2 Points: Age 61-74 years Other congenital or acquired thrombophilia - If yes, enter type in comment: No Thrombosis Risk Factor Assessment Total Risk Factor Score: 3 Thrombosis Risk Factor Assessment Level: Moderate Risk Assessment and Plan (1) Brain mass Current Visit: Yes Status: Acute Code(s): G93.89 - OTHER SPECIFIED DISORDERS OF BRAIN SNOMED Code(s): 256665331 (2) Back pain Current Visit: Yes Status: Acute Code(s): M54.9 - DORSALGIA, UNSPECIFIED SNOMED Code(s): 929215767 (3) Breast mass, right Current Visit: Yes Status: Acute Priority: High Code(s): N63.10 - UNSPECIFIED LUMP IN THE RIGHT BREAST, UNSPECIFIED QUADRANT SNOMED Code(s): 38285092 (4) Low back pain Current Visit: Yes Status: Acute Code(s): M54.5 - LOW BACK PAIN SNOMED Code(s): 857935793 (5) Lytic bone lesion of hip Current Visit: Yes Status: Acute Priority: High Code(s): M89.8X5 - OTHER SPECIFIED DISORDERS OF BONE, THIGH SNOMED Code(s): 31937027 (6) Lytic bone lesion of left femur Current Visit: Yes Status: Acute Code(s): M89.9 - DISORDER OF BONE, UNSPECIFIED SNOMED Code(s): 53665266 (7) Pleural effusion Current Visit: Yes Status: Acute Code(s): J90 - PLEURAL EFFUSION, NOT ELSEWHERE CLASSIFIED SNOMED Code(s): 34549772 Plan: 1. Metastatic disease with breast mass concerning for primary breast cancer. Oncology following and pt s/p biopsy of breast mass. Continue current workup. Pain control 2. R frontal brain mass with vasogenic edema and minimal herniation. Pt given IV mannitol and started on steroids. She will benefit from neurosurgery evaluation as well
--- NOTE | 2020-07-16 19:10 | P.PN ---
Subjective Progress Note Date: 07/16/20 Principal diagnosis: Right breast mass, lytic bone lesions pelvis In follow-up today patient is cooperative but, she does seem slightly more confused than yesterday at times. She states that her pain was an 8, it is down to 4 with current treatments. She can feel it when you are touching her legs. No reports of fevers, nausea, incontinence. Objective - Vital Signs Vital signs: Vital Signs Temp 98.3 F 07/16/20 04:50 Pulse 88 07/16/20 04:50 Resp 18 07/16/20 04:50 BP 146/79 07/16/20 04:50 Pulse Ox 96 07/16/20 04:50 Intake & Output 07/15/20 07/16/20 07/16/20 18:59 06:59 18:59 Intake Total 400 1400 Output Total 400 400 Balance 0 1000 Weight 88.451 kg Intake: Intake, IV Titration 400 1200 Amount Sodium Chloride 0.9% 1, 400 1200 000 ml @ 100 mls/hr IV . Q10H [facility] Rx#:[id number] Oral 200 Output: Urine 400 400 Uretheral ([place]) 400 Other: Voiding Method Indwelling Catheter - Constitutional General appearance: Present: cooperative, no acute distress, obese - EENT Eyes: Present: anicteric sclerae, EOMI ENT: Present: hearing grossly normal - Respiratory Respiratory: bilateral: CTA - Cardiovascular Heart sounds: normal: S1, S2 Abnormal Heart Sounds: Absent: systolic murmur, diastolic murmur, rub, S3 Gallop, S4 Gallop, click, other - Peripheral edema leg Peripheral Edema: bilateral: None - Gastrointestinal General gastrointestinal: Present: normal bowel sounds, soft - Neurologic Neurologic Comment(s): no gross deficits, responses slow - Musculoskeletal Musculoskeletal Comment(s): bilateral lower extremity weakness - Psychiatric Psychiatric Comment(s): alert, oriented to self and place and time, she seems to understand most of her situation - Labs CBC & Chem 7: 07/15/20 09:19 07/15/20 09:19 Labs: Abnormal Lab Results - Last 24 Hours (Table) 07/16/20 Range/Units 06:37 CA 27-29 70.2 H (0.0-38.5) U/mL - Imaging and Cardiology CT scan - abdomen: report reviewed CT scan - chest: report reviewed CT scan - pelvis: report reviewed MRI - head: report reviewed nuclear medicine bone scan report reviewed Assessment and Plan (1) Breast mass, right Current Visit: Yes Status: Acute Priority: High Code(s): N63.10 - UNSPECIFIED LUMP IN THE RIGHT BREAST, UNSPECIFIED QUADRANT SNOMED Code(s): 53359977 (2) Lytic bone lesion of hip Current Visit: Yes Status: Acute Priority: High Code(s): M89.8X5 - OTHER SPECIFIED DISORDERS OF BONE, THIGH SNOMED Code(s): 27935346 Plan: Right axillary adenopathy and right breast mass. Patient states this has been present probably for 2 years or more. She has not had workup of the same. Back pain has been since the summer. CT of the chest abdomen and pelvis is consistent with right breast mass, bilateral axillary adenopathy, some mediastinal adenopathy. Patient does have multiple bone lesions including a concerning one in the left femur, high risk for fracture. Discussed with the patient that she most likely has breast cancer and that this breast cancer is spread. Unfortunately, not curable but, hopefully we can get her on some treatment sooner than later. Currently we are pending biopsy of the breast and MRI of the brain. Stat Rad called. Brain lesion with significant concerns for possible herniation. Dr. Johnson discussed the case with Attending. Plan is for transfer to [facility] for neurosurgery and or so. Oncology. Pt has been given mannitol and started on dexamethasone. Breast biopsy was completed. Case was discussed with Radiation Oncology. There will be plans for radiation postoperatively. Doctor attests: I performed a history and physical examination of this patient, developed i mpression and plan of care, discussed with dictator. I agree with dictators note, documented as a scribe.
[2020-07-16 23:47] VITALS: RESP 18
[2020-07-17] MEDS: DEXAMETHASONE SOD PHOSPHATE 10 MG/ML 1 ML VIAL IV SCH ×2 (00:52→05:40)
[2020-07-17] MEDS: SODIUM CHLORIDE 0.9% 1,000 ML IV SCH (00:55)
[2020-07-17 05:48] VITALS: BP 150/78; PULSE 83; TEMP 97.6
[2020-07-17] MEDS: MORPHINE SULFATE 4 MG/ML SYRINGE IV PRN (07:25)
[2020-07-17] MEDS ORDERED: PANTOPRAZOLE 40 MG TABLET PO SCH (09:00)
--- NOTE | 2020-07-21 17:51 | P.DS ---
Providers Date of admission: 07/15/20 10:24 Expected date of discharge: 07/16/20 Attending physician: Tylor Romero MD Consults: 07/15/20 10:24 Consult Physician Stat Consulting Provider: Jonny Valdez Consult Reason/Comments: metastatic disease, back pain Do you want consulting provider notified?: Yes Consult Physician Stat Consulting Provider: Valdemar Johnson Consult Reason/Comments: metastatic disease, back pain Do you want consulting provider notified?: Yes 07/16/20 09:23 Consult Physician Urgent Consulting Provider: Diony Olmstead Consult Reason/Comments: bone mets, concern for impending fracture Do you want consulting provider notified?: Already Contacted Primary care physician: Gavi Calvillo - Juliet Diagnosis(es) (1) Brain mass Status: Acute (2) Back pain Status: Acute (3) Breast mass, right Status: Acute Priority: High (4) Low back pain Status: Acute (5) Lytic bone lesion of hip Status: Acute Priority: High (6) Lytic bone lesion of left femur Status: Acute (7) Pleural effusion Status: Acute Hospital Course: Maritza Mckeon is a 75 yo F who presented to the hospital with progressive and worsening low back pain, weight loss and unsteady gait. Per , pt has dropped about 25 lbs and is now having constant pain in her legs and pelvis. No fevers, chills or night sweats. She is a nonsmoker. Pt does note a R breast mass that has been present for a few years. On presentation she was hypertensive, labs uremarkable. CT with multiple lytic lesions throughout spine concerning for metastatic disease. Pt was evaluated by Oncology and PET scan ordered which also showed diffuse disease throughout axial spine and MRI brain was ordered as well. 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 She continues to complain of back pain and has not been out of bed this admission. Pt was transferred to [facility] for further evaluation by Orthopedic Oncology and Neurosurgery. Patient Condition at Discharge: Good Plan - Discharge Summary Discharge Rx Participant: No New Discharge Prescriptions: No Action Ibuprofen [Motrin Ib] 800 mg PO Q6H PRN PRN Reason: Pain Docusate [Colace] 100 mg PO DAILY Cholecalciferol [Vitamin D3 (25 Mcg = 1000 Iu)] 1,000 unit PO DAILY Discharge Medication List Cholecalciferol [Vitamin D3 (25 Mcg = 1000 Iu)] 1,000 unit PO DAILY 07/15/20 [History] Docusate [Colace] 100 mg PO DAILY 07/15/20 [History] Ibuprofen [Motrin Ib] 800 mg PO Q6H PRN 07/15/20 [History] Follow up Appointment(s)/Referral(s): Gavi Calvillo MD [Primary Care Provider] - 1-2 days Discharge Disposition: OTHER INSTITUTION NOT DEFINED
== END 2020-07-17 07:36 | disposition short-term general hospital (02) | DRG 542 ==
LOC: EC 06:25 → 4SSUR 10:24 → 6NMEDSUR 15:41
PROVIDERS: ADMIT Family Medicine; ATTEND Family Medicine
PROC: 0HBT3ZX Excision of Right Breast, Percutaneous Approach, Diagnostic (ICD-10-PCS; principal; 2020-07-16)
DX: C79.51 Secondary malignant neoplasm of bone (principal); G93.5 Compression of brain; G93.6 Cerebral edema; J90 Pleural effusion, not elsewhere classified; Z20.828 Contact with and (suspected) exposure to other viral communicable diseases; C50.911 Malignant neoplasm of unspecified site of right female breast; R32 Unspecified urinary incontinence; Z88.6 Allergy status to analgesic agent; Z79.899 Other long term (current) drug therapy; Z88.2 Allergy status to sulfonamides; Z91.018 Allergy to other foods; Z90.49 Acquired absence of other specified parts of digestive tract; Z90.89 Acquired absence of other organs; Z80.3 Family history of malignant neoplasm of breast; Z80.0 Family history of malignant neoplasm of digestive organs; Z82.49 Family history of ischemic heart disease and other diseases of the circulatory system; Z83.3 Family history of diabetes mellitus
CPT/HCPCS: 36415; 70553; 71045; 71260; 72131; 73502; 74177; 78306; 80053; 81003; 83605; 85025; 85610; 85730; 86300; 87040; 87635; 88305; 88341; 88342; 93005; 96372; 96374; 96375; 99285